=== PATIENT | female | born 1990 | race American Indian/Alaskan Native ===

== ENCOUNTER 2017-11-15 12:49 | Outpatient (CLI) | payer OTHER ==
[2017-11-15 13:03] VITALS: BP 115/76
[2017-11-15] MEDS ORDERED: LACTATED RINGERS 500 ML IV ONE (14:00)
== END 2017-11-15 15:21 | disposition home or self-care (01) ==
LOC: TRG 12:49
PROVIDERS: ATTEND Obstetrics & Gynecology Gynecology
DX: O47.03 False labor before 37 completed weeks of gestation, third trimester (principal); Z3A.35 35 weeks gestation of pregnancy
CPT/HCPCS: 59025; 96360; J7120